=== PATIENT | male | born 1955 | race African-American/Black ===

== ENCOUNTER 2021-08-23 19:02 | Emergency (ER) | payer BC ==
[2021-08-23 19:06] VITALS: TEMP 99.1; BMI 23.7
[2021-08-23] MEDS ORDERED: KETOROLAC TROMETHAMINE 30 MG/1 ML VIAL IM ONE (22:00)
[2021-08-23] MEDS ORDERED: KETOROLAC TROMETHAMINE 30 MG/1 ML VIAL ONE (22:19)
[2021-08-23 22:36] LABS: EPI CELLS 22 /uL (0-25.1); HYALINE CASTS 8 /uL (0-3.1); URINE APPEARANCE CLOUDY; URINE BACTERIA 5 /uL (0-1359); URINE BILIRUBIN 1+ (NEGATIVE); URINE COLOR ORANGE; URINE GLUCOSE (UA) NEGATIVE (NEGATIVE); URINE KETONE 2+ (NEGATIVE); URINE LEUK ESTERASE 1+ (NEGATIVE); URINE NITRITE NEGATIVE (NEGATIVE); URINE PROTEIN 2+ (NEGATIVE); URINE RBC 6 /uL (0-23.9); URINE WBC 59 /uL (0-25.8)
[2021-08-24] MEDS ORDERED: LIDOCAINE HCL 1%, 10 MG/ML (20ML VIAL) ONE (00:58)
[2021-08-24] MEDS ORDERED: ACETAMINOPHEN 325 MG TABLET (FP) PO ONE (01:17)
[2021-08-24] MEDS ORDERED: ACETAMINOPHEN 325 MG TABLET (FP) ONE (02:12)
[2021-08-24 02:20] VITALS: BP 116/57; PULSE 69
[2021-08-24 13:24] LABS: SYPHILIS W/ RPR CONF NON-REACTIVE (NONREACTIVE)
[2021-08-24 13:51] LABS: HIV INTERPRETATION NEGATIVE (NEGATIVE)
== END 2021-08-24 02:23 | disposition home or self-care (01) ==
LOC: JER 19:02
PROC: 3E0233Z Introduction of Anti-inflammatory into Muscle, Percutaneous Approach (ICD-10-PCS; principal; 2021-08-23)
PROC: 3E0233Z Introduction of Anti-inflammatory into Muscle, Percutaneous Approach (ICD-10-PCS; 2021-08-23)
DX: N45.3 Epididymo-orchitis (principal); N43.2 Other hydrocele
CPT/HCPCS: 36415; 76870-TC; 81003; 86780; 87086; 87389; 87491; 87591; 87661; 99284-25

== ENCOUNTER 2022-11-10 16:32 | Inpatient (IN) | payer BC, OTHER ==
[2022-11-10 16:40] VITALS: BMI 24.4
[2022-11-10] MEDS ORDERED: ACETAMINOPHEN 1000 MG/100 ML BAG IVPB ONE (17:25)
[2022-11-10] MEDS ORDERED: FAMOTIDINE 20 MG/50 ML IVPB 20 MG/50 ML MG IVPB ONE ×2 (17:25→17:34)
[2022-11-10] MEDS ORDERED: ONDANSETRON 4 MG/2 ML VIAL IVPUSH ONE (17:25)
[2022-11-10] MEDS ORDERED: SODIUM CHLORIDE 0.9% 500 ML INFUS.BAG IV ONE (17:28)
[2022-11-10] MEDS ORDERED: ONDANSETRON 4 MG/2 ML VIAL ONE (17:34)
[2022-11-10] MEDS ORDERED: ACETAMINOPHEN INJECTION 100 ML IVPB ONE (17:34)
[2022-11-10] MEDS ORDERED: HYDROmorphone HCl 2 MG/ML VIAL IVPUSH ONE (17:37)
[2022-11-10] MEDS ORDERED: HYDROmorphone HCl 2 MG/ML VIAL ONE (17:52)
[2022-11-10 18:27] LABS: BASO % 0.2 % (0-2.0); HEMATOCRIT 43.1 % (35.4-49); HEMOGLOBIN 14.5 GM/dL (11.7-16.9); LYMPH % 3.5 % (8-40); MCH 28.8 pg (25.7-33.7); MCHC 33.6 g/dl (32.0-35.9); MEAN CELL VOLUME 85.6 fl (80-96); MEAN PLT VOLUME 9.2 fl (7.5-11.1); MONO % 3.5 % (3.8-10.2); NEUT % 92.8 % (42.8-82.8); PLATELET COUNT 176 10^3/uL (134-434); RBC 5.03 M/mm3 (4.00-5.60); RDW 14.2 % (11.9-15.9)
[2022-11-10 18:50] LABS: CALCIUM 9.5 mg/dL (8.5-10.1)
[2022-11-10 18:51] LABS: ALBUMIN 3.4 g/dl (3.4-5.0); BLOOD UREA NITROGEN 15.7 mg/dL (7-18)
[2022-11-10 18:54] LABS: CREATININE 1.3 mg/dL (0.55-1.3)
[2022-11-10 18:56] LABS: TOT PROT 6.7 g/dl (6.4-8.2)
[2022-11-10 19:08] LABS: ANISOCYTOSIS 1+; MACROCYTOSIS 1+
[2022-11-10 19:15] LABS: LACTIC ACID 2.3 mmol/L (0.4-2.0)
[2022-11-10] MEDS ORDERED: FENTANYL CITRATE/PF 50 MCG/ML VIAL ONE (21:40)
[2022-11-10] MEDS ORDERED: CEFTRIAXONE 1,000 MG in DEXTROSE 5%-WATER - 50 ML IVPB ONE (22:24)
[2022-11-10] MEDS ORDERED: CEFTRIAXONE 1 GM/50 ML BAG ONE (22:28)
[2022-11-10 23:06] LABS: INR 1.08 (0.83-1.09); PROTHROMBIN TIME (PATIENT) 12.5 SEC (9.7-13.0)
[2022-11-10] MEDS ORDERED: LACTATED RINGERS SOLUTION 1,000 ML IV SCH (23:45)
[2022-11-11] MEDS: ACETAMINOPHEN 1000 MG/100 ML BAG IVPB PRN ×2 (00:41→03:09)
[2022-11-11] MEDS ORDERED: INSULIN SLIDING SCALE (NOVOLOG) 1 VIAL SQ SCH (07:00)
[2022-11-11] MEDS ORDERED: BUPIVACAINE HCL/PF 0.5% (5MG/ML) 10 ML VIAL ONE (07:32)
[2022-11-11] MEDS ORDERED: KETAMINE HCL 500 MG/10 ML VIAL ONE (08:08)
[2022-11-11] MEDS ORDERED: ROCURONIUM BROMIDE 50 MG/5 ML SYRINGE ONE (08:53)
[2022-11-11] MEDS ORDERED: SUCCINYLCHOLINE CHLORIDE 200 MG/10 ML SYRINGE ONE (08:53)
[2022-11-11] MEDS ORDERED: PROPOFOL 20 ML ONE (08:54)
[2022-11-11] MEDS ORDERED: BUPIVACAINE HCL/PF 0.5% (5MG/ML) 10 ML VIAL IJ ONE ×2 (09:03→09:29)
[2022-11-11] MEDS ORDERED: CEFTRIAXONE 1 GM in DEXTROSE 5%-WATER - 50 ML IVPB SCH ×2 (10:00→23:00)
[2022-11-11] MEDS ORDERED: FLUOCINONIDE 0.05% TOPICAL SOLUTION (60 ML BOTTLE) TP SCH (10:00)
[2022-11-11] MEDS ORDERED: KETOCONAZOLE 2 % SHAMPOO 120 ML BOTTLE TP SCH (10:00)
[2022-11-11] MEDS ORDERED: oxyCODONE HCL 5 MG TABLET PO PRN ×2 (10:02→10:46)
[2022-11-11] MEDS ORDERED: LACTATED RINGERS SOLUTION 1,000 ML IV SCH (10:46)
[2022-11-11] MEDS ORDERED: INSULIN (NOVOLOG) ASPART 100 UNITS/ML 10ML VIAL ONE ×2 (12:22→19:38)
[2022-11-11] MEDS: INSULIN SLIDING SCALE (NOVOLOG) 1 VIAL SQ SCH ×3 (12:23→21:44)
[2022-11-11 13:42] LABS: HEMATOCRIT 39.4 % (35.4-49); HEMOGLOBIN 13.3 GM/dL (11.7-16.9); MCHC 33.7 g/dl (32.0-35.9); MEAN CELL VOLUME 85.8 fl (80-96); PLATELET COUNT 163 10^3/uL (134-434); RDW 14.4 % (11.9-15.9); WHITE BLOOD COUNT 15.2 K/mm3 (4.0-10.0)
[2022-11-11 13:43] LABS: INR 1.24 (0.83-1.09); PROTHROMBIN TIME (PATIENT) 14.3 SEC (9.7-13.0)
[2022-11-11 13:46] LABS: ACTIVATED PTT 27.7 SECONDS (25.2-36.5)
[2022-11-11 14:11] LABS: BLOOD UREA NITROGEN 17.2 mg/dL (7-18); CALCIUM 8.6 mg/dL (8.5-10.1); MAGNESIUM 1.6 mg/dL (1.8-2.4)
[2022-11-11 14:14] LABS: CREATININE 1.5 mg/dL (0.55-1.3)
[2022-11-11 14:15] LABS: PHOSPHOROUS 2.8 mg/dL (2.5-4.9)
[2022-11-11 14:16] LABS: TOT PROT 5.7 g/dl (6.4-8.2)
[2022-11-11 14:26] LABS: ALBUMIN 2.7 g/dl (3.4-5.0)
[2022-11-11 14:30] LABS: ANISOCYTOSIS 0; HELMET CELLS 0; HOWELL-JOLLY BODIES 0; MACROCYTOSIS 0; OVALOCYTE 0; ROULEAU 0; SICKELED CELLS 0; TARGET CELLS 0; TEAR DROP CELLS 0; TOXIC GRANULATION 0
[2022-11-11] MEDS ORDERED: MAGNESIUM 2GM/50ML STERILE WATER IVPB IVPB ONE (15:00)
[2022-11-11] MEDS ORDERED: KETOROLAC TROMETHAMINE 15 MG/ML VIAL IVPUSH PRN ×2 (16:00)
[2022-11-11] MEDS ORDERED: ACETAMINOPHEN 1000 MG/100 ML BAG IVPB SCH (18:00)
[2022-11-11] MEDS: HEPARIN NA (PORCINE) 5,000 UNITS/ML 1ML VIAL SQ SCH (21:44)
[2022-11-11] MEDS ORDERED: [UNRECOGNIZED DRUG - OTHER] TP SCH ×2 (22:00)
[2022-11-11] MEDS ORDERED: TRETINOIN TP SCH ×2 (22:00)
[2022-11-11] MEDS ORDERED: EMOLLIENT BASE TP SCH ×2 (22:00)
[2022-11-12] MEDS: FLUOCINONIDE 0.05% TOPICAL SOLUTION (60 ML BOTTLE) TP SCH ×3 (00:25→21:20)
[2022-11-12] MEDS: ACETAMINOPHEN 500 MG TABLET (FP) PO SCH ×4 (01:21→17:52)
[2022-11-12] MEDS: INSULIN SLIDING SCALE (NOVOLOG) 1 VIAL SQ SCH ×4 (06:03→21:20)
[2022-11-12] MEDS: CEFTRIAXONE 1 GM in DEXTROSE 5%-WATER - 50 ML IVPB SCH (10:00)
[2022-11-12] MEDS: HEPARIN NA (PORCINE) 5,000 UNITS/ML 1ML VIAL SQ SCH ×2 (10:00→21:20)
[2022-11-12 10:36] LABS: HEMOGLOBIN 13.5 GM/dL (11.7-16.9); MCH 28.9 pg (25.7-33.7); MCHC 33.7 g/dl (32.0-35.9); MEAN CELL VOLUME 85.7 fl (80-96); MEAN PLT VOLUME 8.5 fl (7.5-11.1); PLATELET COUNT 160 10^3/uL (134-434); RBC 4.67 M/mm3 (4.00-5.60); RDW 14.5 % (11.9-15.9); WHITE BLOOD COUNT 14.6 K/mm3 (4.0-10.0)
[2022-11-12 10:59] LABS: CALCIUM 8.6 mg/dL (8.5-10.1)
[2022-11-12 11:00] LABS: ALBUMIN 2.5 g/dl (3.4-5.0); BLOOD UREA NITROGEN 18.8 mg/dL (7-18); MAGNESIUM 2.5 mg/dL (1.8-2.4)
[2022-11-12 11:03] LABS: CREATININE 1.4 mg/dL (0.55-1.3); PHOSPHOROUS 2.5 mg/dL (2.5-4.9)
[2022-11-12 11:04] LABS: TOT PROT 5.7 g/dl (6.4-8.2)
[2022-11-12] MEDS ORDERED: INSULIN (NOVOLOG) ASPART 100 UNITS/ML 10ML VIAL ONE ×3 (11:38→20:45)
[2022-11-12 11:40] LABS: ANISOCYTOSIS 0; HELMET CELLS 0; HOWELL-JOLLY BODIES 0; MACROCYTOSIS 0; OVALOCYTE 0; ROULEAU 0; SICKELED CELLS 0; TARGET CELLS 0; TEAR DROP CELLS 0; TOXIC GRANULATION 0
[2022-11-12] MEDS ORDERED: LACTATED RINGERS SOLUTION 1,000 ML/1,000 ML INFUS.BAG IV SCH (14:45)
[2022-11-12] MEDS: DEXTROSE 5%-0.45% SALINE 1,000 ML IV SCH (15:05)
[2022-11-13] MEDS: INSULIN SLIDING SCALE (NOVOLOG) 1 VIAL SQ SCH ×4 (06:02→22:22)
[2022-11-13] MEDS: DEXTROSE 5%-0.45% SALINE 1,000 ML IV SCH ×2 (09:13→14:59)
[2022-11-13] MEDS ORDERED: cefTRIAXone SODIUM 1 GM VIAL ONE (09:14)
[2022-11-13] MEDS: CEFTRIAXONE 1 GM in DEXTROSE 5%-WATER - 50 ML IVPB SCH (09:16)
[2022-11-13] MEDS ORDERED: ACETAMINOPHEN 1000 MG/100 ML BAG IVPB PRN (09:17)
[2022-11-13] MEDS: HEPARIN NA (PORCINE) 5,000 UNITS/ML 1ML VIAL SQ SCH ×2 (09:17→22:18)
[2022-11-13] MEDS: FLUOCINONIDE 0.05% TOPICAL SOLUTION (60 ML BOTTLE) TP SCH ×2 (09:17→22:53)
[2022-11-13 09:22] LABS: HEMATOCRIT 41.7 % (35.4-49); HEMOGLOBIN 14.1 GM/dL (11.7-16.9); MCH 28.7 pg (25.7-33.7); MCHC 33.7 g/dl (32.0-35.9); MEAN PLT VOLUME 8.3 fl (7.5-11.1); PLATELET COUNT 192 10^3/uL (134-434); RBC 4.91 M/mm3 (4.00-5.60); RDW 14.3 % (11.9-15.9); WHITE BLOOD COUNT 16.5 K/mm3 (4.0-10.0)
[2022-11-13 09:57] LABS: TOT PROT 5.9 g/dl (6.4-8.2)
[2022-11-13 09:59] LABS: CALCIUM 8.6 mg/dL (8.5-10.1); MAGNESIUM 2.4 mg/dL (1.8-2.4)
[2022-11-13 10:00] LABS: ALBUMIN 2.5 g/dl (3.4-5.0)
[2022-11-13] MEDS ORDERED: KETOCONAZOLE 2 % SHAMPOO 120 ML BOTTLE TP SCH (10:00)
[2022-11-13 10:02] LABS: BLOOD UREA NITROGEN 15.8 mg/dL (7-18)
[2022-11-13 10:03] LABS: PHOSPHOROUS 2.1 mg/dL (2.5-4.9)
[2022-11-13 10:04] LABS: CREATININE 1.3 mg/dL (0.55-1.3)
[2022-11-13 10:08] LABS: ANISOCYTOSIS 1+; MACROCYTOSIS 0
[2022-11-13] MEDS: KETOROLAC TROMETHAMINE 15 MG/ML VIAL IVPUSH PRN (11:12)
[2022-11-13] MEDS ORDERED: INSULIN (NOVOLOG) ASPART 100 UNITS/ML 10ML VIAL ONE (11:18)
[2022-11-13] MEDS ORDERED: SODIUM PHOSPHATE - 15 MM in SODIUM CHLORIDE 250 ML IVPB ONE (11:28)
[2022-11-13] MEDS ORDERED: PANTOPRAZOLE 20 MG TABLET PO ONE (11:30)
[2022-11-13] MEDS: PIPERACILLIN/TAZOB 4.5 GM 4.5 GM in DEXTROSE 5%-WATER 100 ML IVPB SCH ×2 (14:59→21:15)
[2022-11-13] MEDS ORDERED: ONDANSETRON 4 MG/2 ML VIAL IVPUSH PRN (16:08)
[2022-11-14] MEDS: PIPERACILLIN/TAZOB 4.5 GM 4.5 GM in DEXTROSE 5%-WATER 100 ML IVPB SCH ×3 (02:40→17:35)
[2022-11-14] MEDS: INSULIN SLIDING SCALE (NOVOLOG) 1 VIAL SQ SCH ×4 (06:48→21:38)
[2022-11-14] MEDS ORDERED: INSULIN (LEVEMIR) 100 UNITS/ML UNITS SQ ONE (06:52)
[2022-11-14] MEDS ORDERED: INSULIN (NOVOLOG) ASPART 100 UNITS/ML 10ML VIAL ONE ×2 (06:52→21:09)
[2022-11-14 08:34] LABS: BASO % 0.2 % (0-2.0); EOS % 0.6 % (0-4.5); HEMOGLOBIN 12.8 GM/dL (11.7-16.9); LYMPH % 4.9 % (8-40); MCH 29.1 pg (25.7-33.7); MCHC 34.4 g/dl (32.0-35.9); MEAN CELL VOLUME 84.4 fl (80-96); MEAN PLT VOLUME 8.4 fl (7.5-11.1); MONO % 6.1 % (3.8-10.2); NEUT % 88.2 % (42.8-82.8); PLATELET COUNT 190 10^3/uL (134-434); RBC 4.39 M/mm3 (4.00-5.60); RDW 14.4 % (11.9-15.9); WHITE BLOOD COUNT 11.5 K/mm3 (4.0-10.0)
[2022-11-14 08:52] LABS: CALCIUM 8.4 mg/dL (8.5-10.1)
[2022-11-14 08:53] LABS: ALBUMIN 2.2 g/dl (3.4-5.0); BLOOD UREA NITROGEN 17.4 mg/dL (7-18)
[2022-11-14 08:54] LABS: MAGNESIUM 2.4 mg/dL (1.8-2.4)
[2022-11-14 08:56] LABS: CREATININE 1.3 mg/dL (0.55-1.3); PHOSPHOROUS 2.1 mg/dL (2.5-4.9)
[2022-11-14 08:57] LABS: BILIRUBIN,TOTAL 1.3 mg/dL (0.2-1); TOT PROT 5.3 g/dl (6.4-8.2)
[2022-11-14] MEDS: FLUOCINONIDE 0.05% TOPICAL SOLUTION (60 ML BOTTLE) TP SCH ×2 (09:47→21:38)
[2022-11-14] MEDS: KETOROLAC TROMETHAMINE 15 MG/ML VIAL IVPUSH PRN (09:47)
[2022-11-14] MEDS: HEPARIN NA (PORCINE) 5,000 UNITS/ML 1ML VIAL SQ SCH ×2 (09:47→21:38)
[2022-11-14] MEDS: PANTOPRAZOLE 20 MG TABLET PO SCH (09:47)
[2022-11-14] MEDS: DEXTROSE 5%-0.45% SALINE 1,000 ML IV SCH ×2 (09:48→20:51)
[2022-11-14 09:58] LABS: EPI CELLS 31 /uL (0-25.1); HYALINE CASTS 3 /uL (0-3.1); URINE APPEARANCE CLOUDY; URINE BILIRUBIN NEGATIVE (NEGATIVE); URINE COLOR YELLOW; URINE GLUCOSE (UA) TRACE (NEGATIVE); URINE KETONE TRACE (NEGATIVE); URINE LEUK ESTERASE NEGATIVE (NEGATIVE); URINE NITRITE NEGATIVE (NEGATIVE); URINE PROTEIN 2+ (NEGATIVE); URINE UROBILINOGEN 0.2 mg/dL (0.2-1.0)
[2022-11-14 11:42] LABS: URINE BACTERIA 10.9 /uL (0-1359); URINE RBC 39.9 /uL (0-23.9); URINE WBC 216.7 /uL (0-25.8)
[2022-11-14 11:43] LABS: URINE CRYSTALS URICA ACID MANY /hpf; YEAST NEGATIVE (NEGATIVE)
[2022-11-15] MEDS: PIPERACILLIN/TAZOB 4.5 GM 4.5 GM in DEXTROSE 5%-WATER 100 ML IVPB SCH ×3 (01:29→17:55)
[2022-11-15] MEDS: DEXTROSE 5%-0.45% SALINE 1,000 ML IV SCH (06:24)
[2022-11-15] MEDS: INSULIN SLIDING SCALE (NOVOLOG) 1 VIAL SQ SCH ×4 (06:44→21:23)
[2022-11-15] MEDS ORDERED: INSULIN (NOVOLOG) ASPART 100 UNITS/ML 10ML VIAL ONE ×3 (06:46→20:29)
[2022-11-15] MEDS ORDERED: INSULIN (LEVEMIR) 100 UNITS/ML UNITS SQ ONE (06:46)
[2022-11-15] MEDS ORDERED: DEXTROSE 5%-0.45% SALINE 1,000 ML IV SCH (07:19)
[2022-11-15 09:26] LABS: BASO % 0.4 % (0-2.0); HEMATOCRIT 37.6 % (35.4-49); HEMOGLOBIN 12.7 GM/dL (11.7-16.9); LYMPH % 11.3 % (8-40); MCH 28.9 pg (25.7-33.7); MCHC 33.7 g/dl (32.0-35.9); MEAN CELL VOLUME 85.8 fl (80-96); MONO % 10.3 % (3.8-10.2); PLATELET COUNT 210 10^3/uL (134-434); RBC 4.39 M/mm3 (4.00-5.60); RDW 14.5 % (11.9-15.9); WHITE BLOOD COUNT 8.2 K/mm3 (4.0-10.0)
[2022-11-15 09:50] LABS: ALBUMIN 2.1 g/dl (3.4-5.0)
[2022-11-15 09:55] LABS: BLOOD UREA NITROGEN 16.5 mg/dL (7-18); MAGNESIUM 2.1 mg/dL (1.8-2.4)
[2022-11-15 09:57] LABS: BASO % 0.3 % (0-2.0); EOS % 2.7 % (0-4.5); HEMATOCRIT 38.5 % (35.4-49); HEMOGLOBIN 12.9 GM/dL (11.7-16.9); LYMPH % 10.8 % (8-40); MCH 28.6 pg (25.7-33.7); MCHC 33.5 g/dl (32.0-35.9); MEAN CELL VOLUME 85.3 fl (80-96); MONO % 10.7 % (3.8-10.2); NEUT % 75.5 % (42.8-82.8); PLATELET COUNT 217 10^3/uL (134-434); RBC 4.52 M/mm3 (4.00-5.60); RDW 14.6 % (11.9-15.9); WHITE BLOOD COUNT 9.1 K/mm3 (4.0-10.0)
[2022-11-15] MEDS: PANTOPRAZOLE 20 MG TABLET PO SCH (09:58)
[2022-11-15] MEDS: HEPARIN NA (PORCINE) 5,000 UNITS/ML 1ML VIAL SQ SCH ×2 (09:58→21:22)
[2022-11-15 09:59] LABS: CREATININE 1.2 mg/dL (0.55-1.3); TOT PROT 5.3 g/dl (6.4-8.2)
[2022-11-15 10:00] LABS: PHOSPHOROUS 2.4 mg/dL (2.5-4.9)
[2022-11-15 10:01] LABS: BILIRUBIN,TOTAL 0.9 mg/dL (0.2-1)
[2022-11-15 10:20] LABS: CALCIUM 8.4 mg/dL (8.5-10.1)
[2022-11-15 10:23] LABS: BLOOD UREA NITROGEN 15.2 mg/dL (7-18)
[2022-11-15 10:24] LABS: CREATININE 1.2 mg/dL (0.55-1.3)
[2022-11-15] MEDS ORDERED: SODIUM CHLORIDE 0.45% 1,000 ML IV SCH (10:45)
[2022-11-15] MEDS ORDERED: POTASSIUM PHOSPHATE 30 MM in DEXTROSE 5%-WATER - 500 ML IVPB ONE (11:30)
[2022-11-16] MEDS: PIPERACILLIN/TAZOB 4.5 GM 4.5 GM in DEXTROSE 5%-WATER 100 ML IVPB SCH ×3 (01:19→17:46)
[2022-11-16] MEDS: INSULIN SLIDING SCALE (NOVOLOG) 1 VIAL SQ SCH ×4 (06:35→21:33)
[2022-11-16 09:02] LABS: BASO % 0.6 % (0-2.0); EOS % 2.5 % (0-4.5); HEMATOCRIT 36.8 % (35.4-49); HEMOGLOBIN 12.4 GM/dL (11.7-16.9); LYMPH % 15.6 % (8-40); MCH 28.7 pg (25.7-33.7); MCHC 33.7 g/dl (32.0-35.9); MEAN CELL VOLUME 85.1 fl (80-96); MEAN PLT VOLUME 8.7 fl (7.5-11.1); MONO % 12.8 % (3.8-10.2); NEUT % 68.5 % (42.8-82.8); PLATELET COUNT 225 10^3/uL (134-434); RBC 4.32 M/mm3 (4.00-5.60); RDW 14.3 % (11.9-15.9); WHITE BLOOD COUNT 9.2 K/mm3 (4.0-10.0)
[2022-11-16 09:34] LABS: CALCIUM 8.3 mg/dL (8.5-10.1)
[2022-11-16 09:35] LABS: ALBUMIN 2.1 g/dl (3.4-5.0); BLOOD UREA NITROGEN 14.7 mg/dL (7-18)
[2022-11-16 09:38] LABS: CREATININE 1.1 mg/dL (0.55-1.3); PHOSPHOROUS 2.7 mg/dL (2.5-4.9)
[2022-11-16 09:39] LABS: TOT PROT 5.3 g/dl (6.4-8.2)
[2022-11-16 09:40] LABS: BILIRUBIN,TOTAL 0.8 mg/dL (0.2-1)
[2022-11-16] MEDS: PANTOPRAZOLE 20 MG TABLET PO SCH (10:17)
[2022-11-16] MEDS: HEPARIN NA (PORCINE) 5,000 UNITS/ML 1ML VIAL SQ SCH ×2 (10:18→21:33)
[2022-11-16] MEDS ORDERED: INSULIN (NOVOLOG) ASPART 100 UNITS/ML 10ML VIAL ONE ×2 (11:30→16:55)
[2022-11-16 14:15] VITALS: RESP 18
[2022-11-17] MEDS: PIPERACILLIN/TAZOB 4.5 GM 4.5 GM in DEXTROSE 5%-WATER 100 ML IVPB SCH ×2 (01:04→09:12)
[2022-11-17] MEDS: INSULIN SLIDING SCALE (NOVOLOG) 1 VIAL SQ SCH (06:24)
[2022-11-17] MEDS ORDERED: ACETAMINOPHEN 1000 MG/100 ML BAG IVPB ONE (06:30)
[2022-11-17 08:58] VITALS: BP 138/73; PULSE 74; TEMP 98.1
[2022-11-17] MEDS: HEPARIN NA (PORCINE) 5,000 UNITS/ML 1ML VIAL SQ SCH (09:13)
[2022-11-17] MEDS: PANTOPRAZOLE 20 MG TABLET PO SCH (09:13)
[2022-11-17 10:07] LABS: BASO % 0.7 % (0-2.0); EOS % 1.3 % (0-4.5); HEMATOCRIT 37.5 % (35.4-49); HEMOGLOBIN 12.6 GM/dL (11.7-16.9); LYMPH % 16.3 % (8-40); MCH 28.5 pg (25.7-33.7); MCHC 33.5 g/dl (32.0-35.9); MEAN CELL VOLUME 85.1 fl (80-96); MEAN PLT VOLUME 8.5 fl (7.5-11.1); MONO % 11.5 % (3.8-10.2); NEUT % 70.2 % (42.8-82.8); PLATELET COUNT 271 10^3/uL (134-434); RBC 4.41 M/mm3 (4.00-5.60); RDW 14.6 % (11.9-15.9)
[2022-11-17 10:37] LABS: CALCIUM 9.1 mg/dL (8.5-10.1)
[2022-11-17 10:38] LABS: ALBUMIN 2.3 g/dl (3.4-5.0); BLOOD UREA NITROGEN 12.7 mg/dL (7-18); MAGNESIUM 1.9 mg/dL (1.8-2.4)
[2022-11-17 10:41] LABS: CREATININE 1.1 mg/dL (0.55-1.3); PHOSPHOROUS 2.4 mg/dL (2.5-4.9)
[2022-11-17 10:43] LABS: BILIRUBIN,TOTAL 0.6 mg/dL (0.2-1); TOT PROT 5.8 g/dl (6.4-8.2)
== END 2022-11-17 17:29 | disposition home health service (06) | DRG 339 ==
LOC: JER 16:32 → JERBED 22:58 → J6S 11-11 03:01
PROVIDERS: ADMIT Internal Medicine; ATTEND Internal Medicine
PROC: 0DTJ0ZZ Resection of Appendix, Open Approach (ICD-10-PCS; principal; 2022-11-11 08:00)
DX: K35.32 Acute appendicitis with perforation, localized peritonitis, and gangrene, without abscess (principal); K56.7 Ileus, unspecified; K91.89 Other postprocedural complications and disorders of digestive system; I10 Essential (primary) hypertension; N40.0 Benign prostatic hyperplasia without lower urinary tract symptoms; Z96.652 Presence of left artificial knee joint; R10.11 Right upper quadrant pain; E11.9 Type 2 diabetes mellitus without complications; H16.8 Other keratitis; Y83.8 Other surgical procedures as the cause of abnormal reaction of the patient, or of later complication, without mention of misadventure at the time of the procedure
CPT/HCPCS: 0241U-QW; 36415; 74018-TC-FY; 74019-TC-FY; 74177-TC; 76705-TC; 80048; 80053; 81003; 82962; 83605; 83690; 83735; 84100; 84484; 85025; 85610; 85730; 87070; 87075; 87076; 87077; 87186; 87205; 88304-TC; 93005; 93010; 94760; 99285-25; J1644; Q9967

== ENCOUNTER 2022-12-16 19:20 | Inpatient (IN) | payer BC, OTHER ==
[2022-12-16] MEDS ORDERED: KETOROLAC TROMETHAMINE 30 MG/1 ML VIAL IM ONE (20:32)
[2022-12-16] MEDS ORDERED: KETOROLAC TROMETHAMINE 30 MG/1 ML VIAL ONE (20:43)
[2022-12-16 21:04] LABS: BASO % 0.4 % (0-2.0); EOS % 1.1 % (0-4.5); HEMATOCRIT 37.3 % (35.4-49); HEMOGLOBIN 12.2 GM/dL (11.7-16.9); LYMPH % 15.9 % (8-40); MCH 27.9 pg (25.7-33.7); MCHC 32.7 g/dl (32.0-35.9); MEAN CELL VOLUME 85.2 fl (80-96); MEAN PLT VOLUME 8.5 fl (7.5-11.1); MONO % 7.3 % (3.8-10.2); NEUT % 75.3 % (42.8-82.8); PLATELET COUNT 176 10^3/uL (134-434); RBC 4.38 M/mm3 (4.00-5.60); WHITE BLOOD COUNT 11.8 K/mm3 (4.0-10.0)
[2022-12-16 21:09] LABS: PROTHROMBIN TIME (PATIENT) 11.6 SEC (9.7-13.0)
[2022-12-16 21:12] LABS: ACTIVATED PTT 30.8 SECONDS (25.2-36.5)
[2022-12-16] MEDS ORDERED: HEPARIN NA (PORCINE) 5,000 UNITS/ML 1ML VIAL IVPUSH PRN ×2 (21:21)
[2022-12-16] MEDS ORDERED: HEPARIN NA (PORCINE) 5,000 UNITS/ML 1ML VIAL IVPUSH ONE (21:21)
[2022-12-16 21:22] LABS: POTASSIUM 4.2 mmol/L (3.5-5.1)
[2022-12-16 21:25] LABS: ALBUMIN 3.3 g/dl (3.4-5.0); BLOOD UREA NITROGEN 21.1 mg/dL (7-18); CALCIUM 9.7 mg/dL (8.5-10.1)
[2022-12-16 21:28] LABS: CREATININE 1.5 mg/dL (0.55-1.3)
[2022-12-16] MEDS ORDERED: HEPARIN NA (PORCINE) 5,000 UNITS/ML 1ML VIAL ONE (21:29)
[2022-12-16] MEDS ORDERED: HEPARIN INFUSION - 25,000 UNITS/500 ML INFUS.BAG IVPB ONE (21:29)
[2022-12-16 21:30] LABS: BILIRUBIN,TOTAL 0.4 mg/dL (0.2-1); TOT PROT 7.2 g/dl (6.4-8.2)
[2022-12-16] MEDS ORDERED: HEPARIN INFUSION - 25,000 UNITS/500 ML INFUS.BAG IVPB SCH (21:30)
[2022-12-17] MEDS ORDERED: SODIUM CHLORIDE 1,000 ML IV SCH (00:15)
[2022-12-17 05:53] LABS: BASO % 0.4 % (0-2.0); EOS % 2.1 % (0-4.5); HEMATOCRIT 34.7 % (35.4-49); HEMOGLOBIN 11.7 GM/dL (11.7-16.9); MCH 28.5 pg (25.7-33.7); MCHC 33.7 g/dl (32.0-35.9); MEAN CELL VOLUME 84.7 fl (80-96); MEAN PLT VOLUME 8.9 fl (7.5-11.1); MONO % 7.8 % (3.8-10.2); NEUT % 60.7 % (42.8-82.8); PLATELET COUNT 165 10^3/uL (134-434); RDW 14.5 % (11.9-15.9); WHITE BLOOD COUNT 10.7 K/mm3 (4.0-10.0)
[2022-12-17 06:11] LABS: INR 1.01 (0.83-1.09); PROTHROMBIN TIME (PATIENT) 11.7 SEC (9.7-13.0)
[2022-12-17 06:13] LABS: ACTIVATED PTT 48.9 SECONDS (25.2-36.5)
[2022-12-17 06:32] VITALS: BMI 24.1
[2022-12-17 06:40] LABS: EPI CELLS 9 /uL (0-25.1); HYALINE CASTS 6 /uL (0-3.1); URINE APPEARANCE CLOUDY; URINE BACTERIA 23 /uL (0-1359); URINE BILIRUBIN NEGATIVE (NEGATIVE); URINE COLOR YELLOW; URINE GLUCOSE (UA) NEGATIVE (NEGATIVE); URINE KETONE TRACE (NEGATIVE); URINE LEUK ESTERASE 3+ (NEGATIVE); URINE NITRITE NEGATIVE (NEGATIVE); URINE PROTEIN 2+ (NEGATIVE); URINE RBC 77 /uL (0-23.9); URINE UROBILINOGEN 0.2 mg/dL (0.2-1.0); URINE WBC 3296 /uL (0-25.8)
[2022-12-17] MEDS ORDERED: CEFTRIAXONE 1 GM in DEXTROSE 5%-WATER - 50 ML IVPB ONE (07:19)
[2022-12-17 07:43] LABS: INR 1.06 (0.83-1.09); PROTHROMBIN TIME (PATIENT) 12.3 SEC (9.7-13.0)
[2022-12-17 07:45] LABS: ACTIVATED PTT 48.9 SECONDS (25.2-36.5)
[2022-12-17 07:57] LABS: POTASSIUM 3.7 mmol/L (3.5-5.1)
[2022-12-17 08:02] LABS: ALBUMIN 2.6 g/dl (3.4-5.0)
[2022-12-17 08:04] LABS: CALCIUM 8.3 mg/dL (8.5-10.1)
[2022-12-17 08:05] LABS: CREATININE 1.2 mg/dL (0.55-1.3)
[2022-12-17 08:07] LABS: TOT PROT 5.9 g/dl (6.4-8.2)
[2022-12-17 08:09] LABS: BILIRUBIN,TOTAL 0.5 mg/dL (0.2-1)
[2022-12-17] MEDS ORDERED: HEPARIN NA (PORCINE) 5,000 UNITS/ML 1ML VIAL IVPUSH PRN (09:14)
[2022-12-17] MEDS: HEPARIN - 25,000 UNIT in SODIUM CHLORIDE 495 ML IV SCH ×2 (11:09→19:49)
[2022-12-17] MEDS: HEPARIN NA (PORCINE) 5,000 UNITS/ML 1ML VIAL IVPUSH PRN ×2 (11:12→19:55)
[2022-12-17] MEDS ORDERED: MELATONIN 5 MG TABLETS PO PRN (14:54)
[2022-12-17] MEDS ORDERED: ACETAMINOPHEN 1000 MG/100 ML BAG IVPB PRN (14:54)
[2022-12-17 17:19] LABS: HEMATOCRIT 34.7 % (35.4-49); HEMOGLOBIN 11.4 GM/dL (11.7-16.9); MCH 27.9 pg (25.7-33.7); MCHC 32.8 g/dl (32.0-35.9); MEAN PLT VOLUME 8.4 fl (7.5-11.1); PLATELET COUNT 177 10^3/uL (134-434); RBC 4.09 M/mm3 (4.00-5.60); RDW 14.7 % (11.9-15.9); WHITE BLOOD COUNT 8.3 K/mm3 (4.0-10.0)
[2022-12-17 22:15] VITALS: RESP 20
[2022-12-18 07:26] LABS: BASO % 0.5 % (0-2.0); EOS % 2.3 % (0-4.5); HEMATOCRIT 34.5 % (35.4-49); HEMOGLOBIN 11.8 GM/dL (11.7-16.9); LYMPH % 21.3 % (8-40); MCH 28.9 pg (25.7-33.7); MCHC 34.2 g/dl (32.0-35.9); MEAN CELL VOLUME 84.5 fl (80-96); MEAN PLT VOLUME 8.7 fl (7.5-11.1); MONO % 6.2 % (3.8-10.2); NEUT % 69.7 % (42.8-82.8); PLATELET COUNT 180 10^3/uL (134-434); RBC 4.08 M/mm3 (4.00-5.60); RDW 14.4 % (11.9-15.9); WHITE BLOOD COUNT 10.4 K/mm3 (4.0-10.0)
[2022-12-18 07:42] LABS: INR 1.12 (0.83-1.09)
[2022-12-18 07:45] LABS: ACTIVATED PTT 44.9 SECONDS (25.2-36.5)
[2022-12-18 07:49] LABS: POTASSIUM 4.7 mmol/L (3.5-5.1)
[2022-12-18 08:00] LABS: ALBUMIN 2.7 g/dl (3.4-5.0); BLOOD UREA NITROGEN 17.2 mg/dL (7-18)
[2022-12-18 08:02] LABS: CALCIUM 9.2 mg/dL (8.5-10.1)
[2022-12-18 08:03] LABS: CREATININE 1.1 mg/dL (0.55-1.3); PHOSPHOROUS 3.2 mg/dL (2.5-4.9)
[2022-12-18 08:04] LABS: TOT PROT 6.3 g/dl (6.4-8.2)
[2022-12-18 08:05] LABS: BILIRUBIN,TOTAL 0.6 mg/dL (0.2-1)
[2022-12-18] MEDS ORDERED: CEFTRIAXONE 1 GM in DEXTROSE 5%-WATER - 50 ML IVPB SCH (10:00)
[2022-12-18] MEDS ORDERED: RAMIPRIL 5 MG CAPSULE PO SCH (10:00)
[2022-12-18] MEDS ORDERED: APIXABAN 5 MG TABLET PO SCH (10:00)
[2022-12-18 10:02] VITALS: BP 148/72; PULSE 77; TEMP 98.2
== END 2022-12-18 12:31 | disposition home or self-care (01) | DRG 300 ==
LOC: JER 19:20 → JERBED 22:21 → J7W 12-17 02:26
PROVIDERS: ADMIT Internal Medicine
DX: I82.412 Acute embolism and thrombosis of left femoral vein (principal); N13.6 Pyonephrosis; N17.9 Acute kidney failure, unspecified; I82.432 Acute embolism and thrombosis of left popliteal vein; I10 Essential (primary) hypertension; E11.9 Type 2 diabetes mellitus without complications; D72.829 Elevated white blood cell count, unspecified; E11.65 Type 2 diabetes mellitus with hyperglycemia; N28.1 Cyst of kidney, acquired
CPT/HCPCS: 0241U-QW; 36415; 71045-TC-FY; 76775-TC; 80053; 80061; 81003; 82550; 82962; 83735; 84100; 85025; 85027; 85610; 85730; 86850; 86900; 86901; 87077; 87086; 93005; 93010; 93970-TC; 99285-25; J1644